=== PATIENT | female | born 1970 | race Caucasian/White ===

== ENCOUNTER 2016-06-12 08:07 | Emergency (ER) | payer MEDICAID ==
[2016-06-12] MEDS ORDERED: FLEXERIL10 MG PO (09:53)
[2016-06-12] MEDS ORDERED: NORCO 7.5-3251 EACH PO (09:54)
[2016-06-12] MEDS ORDERED: NEURONTIN600 MG PO (09:55)
[2016-06-12] MEDS ORDERED: ATIVAN1 MG PO (09:55)
== END 2016-06-12 08:55 | disposition short-term general hospital (02) ==
LOC: ER 08:07
DX: I63.9 Cerebral infarction, unspecified (principal); R29.721 NIHSS score 21; R09.02 Hypoxemia; E86.0 Dehydration; F17.210 Nicotine dependence, cigarettes, uncomplicated; Z79.899 Other long term (current) drug therapy; W06.XXXA Fall from bed, initial encounter